=== PATIENT | male | born 1960 | race African-American/Black ===

== ENCOUNTER 2017-01-22 14:12 | Emergency (ER) | payer OTHER ==
[~2017-01-22] VITALS: Ht 180.3 cm; Wt 73.5 kg
[2017-01-22 15:02] VITALS: BP 111/87
== END 2017-01-22 18:48 | disposition left against medical advice (07) ==
LOC: ED 14:12
DX: M25.562 Pain in left knee (principal); F17.200 Nicotine dependence, unspecified, uncomplicated; F14.20 Cocaine dependence, uncomplicated; G47.00 Insomnia, unspecified; Z98.890 Other specified postprocedural states

== ENCOUNTER 2018-01-30 10:24 | Emergency (ER) | payer MEDICAID ==
[~2018-01-30] VITALS: Ht 180.3 cm; Wt 72.6 kg
[2018-01-30 10:41] VITALS: BP 119/74; Ht 180.3 cm; Wt 72.6 kg
== END 2018-01-30 11:35 | disposition home or self-care (01) ==
LOC: ED 10:24
DX: M79.605 Pain in left leg (principal); G89.29 Other chronic pain; F31.9 Bipolar disorder, unspecified; F20.9 Schizophrenia, unspecified; G47.00 Insomnia, unspecified; Z86.59 Personal history of other mental and behavioral disorders